=== PATIENT | female | born 1965 | race African-American/Black ===

== ENCOUNTER 2022-05-09 16:28 | Emergency (ER) | payer OTHER ==
[2022-05-09 17:12] VITALS: BP 149/80; PULSE 65; RESP 16; TEMP 98.1; BMI 20.6
== END 2022-05-09 19:45 | disposition home or self-care (01) ==
LOC: JERFT 16:28
DX: M94.0 Chondrocostal junction syndrome [Tietze] (principal); W01.0XXA Fall on same level from slipping, tripping and stumbling without subsequent striking against object, initial encounter
CPT/HCPCS: 76705-TC; 99284-25